=== PATIENT | female | born 1985 | race Caucasian/White ===

== ENCOUNTER 2018-11-11 09:23 | Emergency (ER) | payer SELFPAY ==
--- NOTE | 2018-11-11 09:44 | EDPHYS ---
Physician Documentation [facility] Name: Claudia Lopez Age: 33 yrs Sex: Female : 1985 Arrival Date: 11/11/2018 Time: 09:25 Bed 20 Private MD: ED Physician Tobias James HPI: 11/11 09:40 This 33 yrs old Female presents to ER via Ambulatory with complaints of rn Finger Swelling. 09:40 The patient or guardian reports pain. The complaints affect the right middle finger, rn radial side of nail. Onset: The symptoms/episode began/occurred yesterday. Modifying factors: The symptoms are alleviated by nothing, the symptoms are aggravated by touching area. Severity of symptoms: At their worst the symptoms were mild, in the emergency department the symptoms are unchanged. The patient has not experienced similar symptoms in the past. 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 . 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 tw2 Historical: - Allergies: 09:32 Ceclor; tw2 09:33 Ceclor; hb - Home Meds: 09:33 None [Active]; hb - PMHx: 09:32 None; tw2 09:33 None; hb - PSHx: 09:32 R leg; tw2 09:33 R leg; hb - Immunization history:: Adult Immunizations. - Social history:: Smoking status: . - Ebola Screening: : Patient denies travel to an Ebola-affected area in the 21 days before illness onset. - Family history:: not pertinent. - Hospitalizations: : No recent hospitalization is reported. ROS: 09:40 Constitutional: Negative for fever, chills, and weight loss, MS/Extremity: + right rn middle finger pain Exam: 09:40 Constitutional: This is a well developed, well nourished patient who is awake, alert, rn and in no acute distress. MS/ Extremity: Pulses equal, no cyanosis. Neurovascular intact. Full, normal range of motion. Equal circumference. No tenderness along flexor tendon sheath. + radial side of nail of right middle finger with early paronychia, no head or drainage, no focal area able to drain. Vital Signs: 09:32 BP 107 / 71; Pulse 75; Resp 16; Temp 97.8; Pulse Ox 100% on R/A; Pain 6/10; hb MDM: 09:32 Patient medically screened. rn 09:40 Differential diagnosis: paronychia. Data reviewed: vital signs, nurses notes. rn Counseling: I had a detailed discussion with the patient and/or guardian regarding: the historical points, exam findings, and any diagnostic results supporting the discharge/admit diagnosis, the need for outpatient follow up, to return to the emergency department if symptoms worsen or persist or if there are any questions or concerns that arise at home. Special discussion: I discussed with the patient/guardian in detail that at this point there is no indication for admission to the hospital. It is understood, however, that if the symptoms persist or worsen the patient needs to return immediately for re-evaluation. ED course: Offered needle elevation along nail edge since can't find focal drainage point, patient prefers abx and no manipulation right now. . Administered Medications: No medications were administered Disposition: 11/11/18 09:44 Discharged to Home. Impression: Paronychia of right middle finger. - Condition is Stable. - Discharge Instructions: Paronychia. - Prescriptions for Bactrim DS 800- 160 mg Oral Tablet - take 1 tablet by ORAL route every 12 hours for 10 days; 20 tablet. - Medication Reconciliation Form, Thank You Letter, Antibiotic Education, Prescription Opioid Use form. - Follow up: Private Physician; When: As needed; Reason: Recheck today's complaints, Re-evaluation by your physician. - Problem is new. - Symptoms have improved. Signatures: Tobias James MD MD rn Baxter, Heather, RN RN hb Wise, Tara, RN RN tw2 Corrections: (The following items were deleted from the chart) 09:47 09:44 11/11/2018 09:44 Discharged to Home. Impression: Paronychia of right middle tw2 finger. Condition is Stable. Forms are Medication Reconciliation Form, Thank You Letter, Antibiotic Education, Prescription Opioid Use. Follow up: Private Physician; When: As needed; Reason: Recheck today's complaints, Re-evaluation by your physician. Problem is new. Symptoms have improved. rn
--- NOTE | 2018-11-11 09:44 | ER ---
Nurse's Notes [facility] Name: Claudia Lopez Age: 33 yrs Sex: Female : 1985 Arrival Date: 11/11/2018 Time: 09:25 Bed 20 Private MD: Diagnosis: Paronychia of right middle finger Presentation: 11/11 09:32 Presenting complaint: Friend states: Right middle finger pain and swelling upon waking hb today. Denies injury. Transition of care: patient was not received from another setting of care. Onset of symptoms was November 11, 2018. Risk Assessment: Do you want to hurt yourself or someone else? Patient reports no desire to harm self or others. Care prior to arrival: None. 09:32 Method Of Arrival: Ambulatory hb 09:32 Method Of Arrival: Ambulatory hb 09:32 Acuity: JOEL 4 hb 09:33 Initial Sepsis Screen: Does the patient meet any 2 criteria? No. Patient's initial tw2 sepsis screen is negative. Does the patient have a suspected source of infection? No. Patient's initial sepsis screen is negative. 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 tw2 Historical: - Allergies: 09:32 Ceclor; tw2 09:33 Ceclor; hb - Home Meds: 09:33 None [Active]; hb - PMHx: 09:32 None; tw2 09:33 None; hb - PSHx: 09:32 R leg; tw2 09:33 R leg; hb - Immunization history:: Adult Immunizations. - Social history:: Smoking status: . - Ebola Screening: : Patient denies travel to an Ebola-affected area in the 21 days before illness onset. - Family history:: not pertinent. - Hospitalizations: : No recent hospitalization is reported. Screenin:31 Abuse screen: Denies threats or abuse. Nutritional screening: No deficits noted. tw2 Tuberculosis screening: No symptoms or risk factors identified. Fall Risk None identified. Assessment: 09:34 General: Appears in no apparent distress. Behavior is calm, cooperative, appropriate tw2 for age. Pain:. 09:34 Neuro: Level of Consciousness is awake, alert, obeys commands, Oriented to person, tw2 place, time, situation. Cardiovascular: Patient's skin is warm and dry. Respiratory: Airway is patent Respiratory effort is even, unlabored, Respiratory pattern is regular, symmetrical. GI: No signs and/or symptoms were reported involving the gastrointestinal system. Musculoskeletal: Circulation, motion, and sensation intact. Reports pain in dorsal aspect of distal phalanx of right middle finger, dorsal aspect of middle phalanx of right middle finger, dorsal aspect of proximal phalanx of right middle finger, palmar aspect of distal phalanx of right middle finger, palmar aspect of middle phalanx of right middle finger and palmar aspect of proximal phalanx of right middle finger. 09:47 Reassessment: Patient appears in no apparent distress at this time. Patient is alert, tw2 oriented x 3, equal unlabored respirations, skin warm/dry/pink. Vital Signs: 09:32 BP 107 / 71; Pulse 75; Resp 16; Temp 97.8; Pulse Ox 100% on R/A; Pain 6/10; hb ED Course: 09:25 Patient arrived in ED. as 09:31 Linda Garces RN is Primary Nurse. tw2 09:31 Arm band placed on. tw2 09:32 Tobias James MD is Attending Physician. rn 09:32 Triage completed. hb 09:33 Bed in low position. Call light in reach. Pulse ox on. NIBP on. tw2 09:47 No provider procedures requiring assistance completed. Patient did not have IV access tw2 during this emergency room visit. Administered Medications: No medications were administered Outcome: 09:44 Discharge ordered by . rn 09:47 Discharged to home ambulatory. tw2 09:47 Condition: stable 09:47 Discharge instructions given to patient, Instructed on discharge instructions, follow up and referral plans. medication usage, Demonstrated understanding of instructions, follow-up care, medications, Prescriptions given X 1. 09:47 Patient left the ED. tw2 Signatures: Leann Gan Roman, MD MD rn Baxter, Heather, RN RN Linda Garces RN RN tw2
== END 2018-11-11 09:47 | disposition home or self-care (01) ==
LOC: ER 09:23
DX: L03.011 Cellulitis of right finger (principal); Z88.1 Allergy status to other antibiotic agents
CPT/HCPCS: 99283

== ENCOUNTER 2018-12-31 11:30 | Emergency (ER) | payer SELFPAY ==
[2018-12-31] MEDS ORDERED: MAGNE/ALUM HYDROXD 30 ML UCUP ONE (12:19)
[2018-12-31] MEDS ORDERED: LIDOCAINE VISCOUS 2% SOLN 15 ML UDC ONE (12:19)
[2018-12-31] MEDS ORDERED: NA CHLORIDE 0.9% 1,000 ML ONE (12:20)
[2018-12-31] MEDS ORDERED: FAMOTIDINE 20 MG/2 ML VIAL IV ONE (12:20)
[2018-12-31 12:23] LABS: Absolute Lymphocytes (CBC) 3.2 K/uL (0.7-4.9); Absolute Monocytes 0.7 K/uL (0.1-1.3); Absolute Neutrophil 4.6 K/uL (1.8-8.0); Basophils % 0.9 % (0-1.3); Eosinophils % 1.2 % (0-4.4); Hematocrit 40.4 % (36.0-45.0); MPV 9.9 fL (7.6-11.3); Monocytes % 7.8 % (3.3-12.3); RBC Red Blood Cell Count 4.38 M/uL (3.86-4.86)
[2018-12-31 12:35] LABS: ALT/SGPT 15 U/L (12-78); AST/SGOT 11 U/L (15-37); Albumin 3.5 g/dL (3.4-5.0); Alkaline Phosphatase 49 U/L (45-117); BUN Blood Urea Nitrogen 12 mg/dL (7-18); Bicarbonate 26 mmol/L (21-32); Bilirubin Direct 0.1 mg/dL (0-0.2); Bilirubin Total 0.5 mg/dL (0.2-1.0); Glucose Level 94 mg/dL (74-106); Lipase 114 U/L (73-393); Potassium 3.8 mmol/L (3.5-5.1); Protein, Total 6.7 g/dL (6.4-8.2); Sodium Level 140 mmol/L (136-145)
--- NOTE | 2018-12-31 13:17 | ER ---
Nurse's Notes [facility] Name: Claudia Lopez Age: 33 yrs Sex: Female : 1985 Arrival Date: 12/31/2018 Time: 11:32 Bed 14 Private MD: Diagnosis: Epigastric pain;Gastritis, unspecified Presentation: 12/31 11:36 Presenting complaint: Patient states: epigastric pain that began 1 week ago. Pt states aa5 "It hurts worse when I eat". Pt states "I had nausea and vomiting the first day but not anymore". Transition of care: patient was not received from another setting of care. Onset of symptoms was December 2018. Risk Assessment: Do you want to hurt yourself or someone else? Patient reports no desire to harm self or others. Initial Sepsis Screen: Does the patient meet any 2 criteria? No. Patient's initial sepsis screen is negative. Does the patient have a suspected source of infection? No. Patient's initial sepsis screen is negative. Care prior to arrival: None. 11:36 Method Of Arrival: Ambulatory aa5 11:36 Acuity: JOEL 3 aa5 Triage Assessment: 11:40 General: Appears in no apparent distress. uncomfortable, Behavior is cooperative, bp appropriate for age, anxious. Pain: Complains of pain in epigastric area. EENT: No deficits noted. Neuro: Level of Consciousness is awake, alert, obeys commands, Oriented to person, place, time, situation, Appropriate for age. Cardiovascular: No deficits noted. Respiratory: Airway is patent Respiratory effort is even, unlabored, Respiratory pattern is regular, symmetrical. GI: Reports epigastric pain. : No signs and/or symptoms were reported regarding the genitourinary system. Derm: No deficits noted. Musculoskeletal: Circulation, motion, and sensation intact. Range of motion: intact in all extremities. 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 - Social history:: Smoking status: Patient uses tobacco products, smokes one-half pack cigarettes per day. - Ebola Screening: : No symptoms or risks identified at this time. Screenin:42 Abuse screen: Denies threats or abuse. Denies injuries from another. Nutritional bp screening: No deficits noted. Tuberculosis screening: No symptoms or risk factors identified. Fall Risk None identified. Assessment: 11:42 General: SEE TRIAGE NOTE. bp 12:00 GI: Bowel sounds present X 4 quads. Abd is soft X 4 quads. bp 13:25 Reassessment: PT D/C HOME AMBULATORY WITH FAMILY, DX WITH GASTRITIS. bp Vital Signs: 11:37 BP 106 / 72; Pulse 77; Resp 18 S; Temp 98.6(TE); Pulse Ox 97% on R/A; Weight 68.04 kg aa5 (R); Height 5 ft. 3 in. (160.02 cm) (R); Pain 4/10; 12:24 BP 99 / 76; Pulse 69; Resp 18; Temp 97.8; Pulse Ox 100% on R/A; mh5 13:25 BP 107 / 75; Pulse 71; Resp 16; Temp 98.6; Pulse Ox 99% ; bp 11:37 Body Mass Index 26.57 (68.04 kg, 160.02 cm) aa5 ED Course: 11:32 Patient arrived in ED. mr 11:36 Triage completed. aa5 11:36 Arm band placed on. aa5 11:38 Teofilo Culp, RN is Primary Nurse. bp 11:40 Quintin Comer PA is PHCP. jr8 11:40 Alex Webb MD is Attending Physician. jr8 11:42 Patient has correct armband on for positive identification. Bed in low position. Call bp light in reach. Side rails up X2. Adult w/ patient. 11:55 Inserted saline lock: 20 gauge in right antecubital area, using aseptic technique. bp Blood collected. 12:08 EKG done, by repair tech. reviewed by Quintin DOOLEY. at1 13:16 Justyn Cowan MD is Referral Physician. jr8 13:25 No provider procedures requiring assistance completed. IV discontinued, intact, bp bleeding controlled, No redness/swelling at site. Pressure dressing applied. Administered Medications: 12:00 Drug: Pepcid 20 mg Route: IVP; Site: right antecubital; bp 13:28 Follow up: Response: No adverse reaction bp 12:00 Drug: GI Cocktail without - (Maalox Suspension 30 ml, Lidocaine Liquid 2 % 15 bp ml) Route: PO; 13:28 Follow up: Response: No adverse reaction bp 12:00 Drug: NS 0.9% 1000 ml Route: IV; Rate: 1 bolus; Site: right antecubital; bp 13:28 Follow up: IV Status: Completed infusion bp Outcome: 13:16 Discharge ordered by MD. power 13:25 Discharged to home ambulatory, with family. bp 13:25 Condition: stable 13:25 Discharge instructions given to patient, Instructed on discharge instructions, follow up and referral plans. medication usage, Demonstrated understanding of instructions, follow-up care, medications, Prescriptions given X 1. 13:30 Patient left the ED. bp Signatures: Keturah Siegel mr LemusTeresa, RN RN [email or web address] Quintin Comer PA PA jr8 Dalia Ackerman, finger buff sewer EKG [facility] Jane Gan [facility] Teofilo Culp, JONA RN bp
--- NOTE | 2018-12-31 13:18 | EDPHYS ---
Physician Documentation [facility] Name: Claudia Lopez Age: 33 yrs Sex: Female : 1985 Arrival Date: 12/31/2018 Time: 11:32 Bed 14 Private MD: ED Physician Alex Webb HPI: 12/31 12:00 This 33 yrs old Female presents to ER via Ambulatory with complaints of jr8 Abdominal Pain. 12:00 The patient presents with abdominal pain in the epigastric area. Onset: The jr8 symptoms/episode began/occurred acutely, 1 week(s) ago. The symptoms radiate to back. Associated signs and symptoms: Pertinent positives: nausea and vomiting. The symptoms are described as shooting, stabbing. Modifying factors: The symptoms are alleviated by nothing, the symptoms are aggravated by food. Severity of pain: At its worst the pain was moderate in the emergency department the pain is unchanged. The patient has not experienced similar symptoms in the past. The patient has not recently seen a physician. 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 - Social history:: Smoking status: Patient uses tobacco products, smokes one-half pack cigarettes per day. - Ebola Screening: : No symptoms or risks identified at this time. ROS: 12:00 Constitutional: Negative for fever, chills, and weight loss. jr8 12:00 Abdomen/GI: Positive for abdominal pain, nausea and vomiting, Negative for diarrhea, constipation, abdominal cramps, abdominal distension, anorexia, dysphagia, hematemesis, black/tarry stool, rectal pain, rectal bleeding, bowel incontinence, flatulence. 12:00 All other systems are negative. Exam: 12:00 Eyes: Pupils equal round and reactive to light, extra-ocular motions intact. Lids and jr8 lashes normal. Conjunctiva and sclera are non-icteric and not injected. Cornea within normal limits. Periorbital areas with no swelling, redness, or edema. ENT: Nares patent. No nasal discharge, no septal abnormalities noted. Tympanic membranes are normal and external auditory canals are clear. Oropharynx with no redness, swelling, or masses, exudates, or evidence of obstruction, uvula midline. Mucous membranes moist. Neck: Trachea midline, no thyromegaly or masses palpated, and no cervical lymphadenopathy. Supple, full range of motion without nuchal rigidity, or vertebral point tenderness. No Meningismus. Cardiovascular: Regular rate and rhythm with a normal S1 and S2. No gallops, murmurs, or rubs. Normal PMI, no JVD. No pulse deficits. Respiratory: Lungs have equal breath sounds bilaterally, clear to auscultation and percussion. No rales, rhonchi or wheezes noted. No increased work of breathing, no retractions or nasal flaring. Back: No spinal tenderness. No costovertebral tenderness. Full range of motion. Skin: Warm, dry with normal turgor. Normal color with no rashes, no lesions, and no evidence of cellulitis. MS/ Extremity: Pulses equal, no cyanosis. Neurovascular intact. Full, normal range of motion. Neuro: Awake and alert, GCS 15, oriented to person, place, time, and situation. Cranial nerves II-XII grossly intact. Motor strength 5/5 in all extremities. Sensory grossly intact. Cerebellar exam normal. Normal gait. 12:00 Abdomen/GI: Inspection: abdomen appears normal, Bowel sounds: active, all quadrants, Palpation: soft, in all quadrants, nontender, in the umbilical area, suprapubic area, right upper quadrant, left upper quadrant, right lower quadrant and left lower quadrant, moderate abdominal tenderness, in the epigastric area, mass, is not appreciated, rebound tenderness, is not appreciated, voluntary guarding, is not appreciated, involuntary guarding, is not appreciated, no appreciated organomegaly, Indicators: McBurney's point is not tender, Troy's sign is negative, Rovsing's sign is negative, Liver: tenderness, is not appreciated. 12:08 ECG was reviewed by the Attending Physician. jr8 Vital Signs: 11:37 BP 106 / 72; Pulse 77; Resp 18 S; Temp 98.6(TE); Pulse Ox 97% on R/A; Weight 68.04 kg aa5 (R); Height 5 ft. 3 in. (160.02 cm) (R); Pain 4/10; 12:24 BP 99 / 76; Pulse 69; Resp 18; Temp 97.8; Pulse Ox 100% on R/A; mh5 13:25 BP 107 / 75; Pulse 71; Resp 16; Temp 98.6; Pulse Ox 99% ; bp 11:37 Body Mass Index 26.57 (68.04 kg, 160.02 cm) aa5 MDM: 11:40 Patient medically screened. jr8 13:14 Differential diagnosis: cholecystitis, Cholelithiasis, gastritis, gastroesophageal jr8 reflux disease, Hepatitis, Irritable bowel syndrome, myocardia ischemia or infarction, non-specific abd pain, pancreatitis, Peptic Ulcer Disease, Perf. Duodenal Ulcer, Perf. Gastric Ulcer. Data reviewed: vital signs, nurses notes, lab test result(s), and as a result, I will discharge patient. Data interpreted: Pulse oximetry: on room air is 100 %. Interpretation: normal. Counseling: I had a detailed discussion with the patient and/or guardian regarding: the historical points, exam findings, and any diagnostic results supporting the discharge/admit diagnosis, lab results, the need for outpatient follow up, a director asset, to return to the emergency department if symptoms worsen or persist or if there are any questions or concerns that arise at home. Response to treatment: the patient's symptoms have markedly improved after treatment. ED course: Patient feeling much better. Reviewed labs with patient. No acute findings. Based on labs and exam recommended f/u with GI for endoscopy for definitive diagnosis. Possibilities include GERD, gastritis, or peptic or duodenal ulcers at this point. Nothing else noted to suggest otherwise. Patient good with plan and will f/u . 12/31 11:41 Order name: Basic Metabolic Panel; Complete Time: 12:44 12/31 11:41 Order name: CBC with Diff; Complete Time: 12:44 12/31 11:41 Order name: Hepatic Function; Complete Time: 12:44 12/31 11:41 Order name: Lipase; Complete Time: 12:44 12/31 11:41 Order name: IV Saline Lock; Complete Time: 11:59 12/31 11:41 Order name: Labs collected and sent; Complete Time: 11:59 12/31 11:48 Order name: EKG; Complete Time: 11:49 12/31 12:13 Order name: EKG - Nurse/Tech; Complete Time: 12:14 bp EC:08 Rate is 66 beats/min. Rhythm is regular, Normal Sinus Rhythm. QRS [place] is Normal. CT jr8 interval is normal at 186 msec. QRS interval is normal at 80 msec. QT interval is normal at 431 msec. No Q waves. T waves are Normal. No ST changes noted. Clinical impression: Normal ECG and No evidence of ischemia. Interpreted by me. Reviewed by me. Administered Medications: 12:00 Drug: Pepcid 20 mg Route: IVP; Site: right antecubital; bp 13:28 Follow up: Response: No adverse reaction bp 12:00 Drug: GI Cocktail without - (Maalox Suspension 30 ml, Lidocaine Liquid 2 % 15 bp ml) Route: PO; 13:28 Follow up: Response: No adverse reaction bp 12:00 Drug: NS 0.9% 1000 ml Route: IV; Rate: 1 bolus; Site: right antecubital; bp 13:28 Follow up: IV Status: Completed infusion bp Disposition: 14:23 Co-signature as Attending Physician, Alex Webb MD. ma2 Disposition: 12/31/18 13:16 Discharged to Home. Impression: Epigastric pain, Gastritis, unspecified. - Condition is Stable. - Discharge Instructions: Abdominal Pain, Adult, Gastritis, Adult. - Prescriptions for omeprazole 40 mg Oral capsule,delayed release(DR/EC) - take 1 capsule by ORAL route once daily before a meal; 30 capsule. - Medication Reconciliation Form, Thank You Letter, Antibiotic Education, Prescription Opioid Use form. - Follow up: Justyn Cowan MD; When: 2 - 3 days; Reason: Recheck today's complaints, Continuance of care, Re-evaluation by your physician. - Problem is new. - Symptoms have improved. Signatures: Dispatcher [employer] EDMS Teresa Lmeus RN RN aa5 Quintin Comer PA PA jr8 Teofilo Culp RN RN bp Alex Webb MD MD ma2 Corrections: (The following items were deleted from the chart) 13:30 13:16 12/31/2018 13:16 Discharged to Home. Impression: Epigastric pain; Gastritis, bp unspecified. Condition is Stable. Forms are Medication Reconciliation Form, Thank You Letter, Antibiotic Education, Prescription Opioid Use. Follow up: Justyn Cowan; When: 2 - 3 days; Reason: Recheck today's complaints, Continuance of care, Re-evaluation by your physician. Problem is new. Symptoms have improved. jr8
--- NOTE | 2018-12-31 16:49 | EKG ---
Test Date: 2018-12-31 Test Time: 12:04:15 Resource Management Specialist: ETHEL MEASUREMENT RESULTS: Intervals: Rate: 66 MA: 186 QRSD: 80 QT: 412 QTc: 431 [place]: P: 45 MA: 186 QRS: 80 T: 58 INTERPRETIVE STATEMENTS: Normal sinus rhythm Normal ECG No previous ECG available for comparison Electronically Signed On 12-31-18 16:48:49 CDT by Kapil Kirk
== END 2018-12-31 13:30 | disposition home or self-care (01) ==
LOC: ER 11:30
DX: K29.70 Gastritis, unspecified, without bleeding (principal); F17.210 Nicotine dependence, cigarettes, uncomplicated; Z88.8 Allergy status to other drugs, medicaments and biological substances
CPT/HCPCS: 36415; 80048; 80076; 83690; 85025; 93005; 96361; 96374; 99284; J7030